=== PATIENT | female | born 2000 ===

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

== ENCOUNTER → 2018-02-03 16:05 | Outpatient (CLI) | payer OTHER, MEDICAID, SELFPAY ==
--- NOTE | 2018-02-03 | DI.US.S_ITS ---
PROCEDURE: US PELVIC COMPLETE INDICATIONS: IUD PLACEMENT TECHNIQUE: Real-time scanning was performed of the pelvic organs, with image documentation. Additional endovaginal scanning was necessary due to incomplete visualization of the adnexal and endometrial structures by transabdominal scanning. COMPARISON: [facility], US, US PELVIC + TRANSVAG + DOPPLER LIMITED, 08/19/2017, 10:57. FINDINGS: Transabdominal scanning: Limited scanning through the kidneys shows no hydronephrosis. No pathologic free abdominal or pelvic fluid. Endovaginal scanning: Uterus: Uterus is normal in size at 9.0 x 3.4 x 4.5 cm. The endometrium measures 7.0 mm in combined thickness. Intrauterine device in expected position. Ovaries: Regressing physiologic cyst involves the left ovary measuring 1.9 x 1.5 x 1.6 cm and the ovaries otherwise are normal. IMPRESSION: 1. Intrauterine device in expected position. Dictated by: Michael JOHNSTON Interpreted: Willy Naranjo MD on 02/03/2018 at 16:43 Approved by: Willy Naranjo M.D. on 02/03/2018 at 17:20
== END ==
PROVIDERS: PCP Family Medicine; Visit Provider Nurse Practitioner Family
DX: Z30.431 Encounter for routine checking of intrauterine contraceptive device (principal)
CPT/HCPCS: 76830; 76856

== ENCOUNTER → 2018-10-22 15:09 | Outpatient (CLI) | payer OTHER, MEDICAID, SELFPAY ==
--- NOTE | 2018-10-22 | DI.US.S_ITS ---
PROCEDURE: US OB <= 14 WEEKS FETUS INDICATIONS: SIZE AND DATES OUTSIDE/PRIOR DATING DATA: Last menstrual period (LMP): 09/13/18. LMP-based estimated date of delivery (CARIN): 06/20/19. First dating scan (date and location): This study. Estimated date of delivery (CARIN) from first dating scan: 06/22/19. TECHNIQUE: Real-time scanning was performed of the fetus and maternal pelvic organs, with image documentation. Endovaginal scanning was also performed to better visualize the fetus and maternal ovaries. COMPARISON: None. FINDINGS: Embryo: What likely is a very early gestation within the gestational sac is found but the certainty of gestation is somewhat limited and the structure does not show cardiac activity (as would be expected at this very early stage of ). Therefore mean sac diameter is utilized for dating, and a mean sac diameter is 6 mm which correlates with a gestational age of 5 weeks 2 days. What appears to be a yolk sac within the gestational sac is seen. Measurement variability in dating: +/- 4 weeks by LMP, +/- 7 days by mean sac diameter (use before 6 weeks gestation if crown-rump length not able to be measured), +/- 5 days by crown-rump length (up to 8 weeks 6 days gestation), +/- 7 days by crown-rump length (up to 13 weeks 6 days gestation). Maternal organs: Ovaries normal considering gestational status. Limited images through the kidneys demonstrate no hydronephrosis. IMPRESSION: There is an intrauterine gestational sac which contains what appears to be a very small yolk sac, and likely a pole but the estimated current gestational age would be 5 weeks 2 days before the expected onset of cardiac activity. Therefore, mean sac diameter is utilized for dating purposes, establishing current estimated gestational age of 5 weeks 2 days, plus or -7 days. Followup OB ultrasound in 10 days could be utilized to confirm viable gestation and more accurately assess the first trimester gestational age for followup. Assuming viable gestation a followup anatomic survey at approximately 21 weeks gestation is recommended. By appearance viability likely is present but cannot yet be established given the very early gestational age before cardiac activity is expected to be seen. Dictated by: Cj Yanez M.D. on 10/22/2018 at 16:51 Approved by: Cj Yanez M.D. on 10/22/2018 at 16:57
== END ==
PROVIDERS: PCP Family Medicine; Visit Provider Family Medicine
DX: Z34.91 Encounter for supervision of normal pregnancy, unspecified, first trimester (principal); Z3A.01 Less than 8 weeks gestation of pregnancy
CPT/HCPCS: 76801; 76830

== ENCOUNTER → 2018-11-02 15:39 | Outpatient (CLI) | payer OTHER, MEDICAID, SELFPAY ==
--- NOTE | 2018-11-02 | DI.US.S_ITS ---
PROCEDURE: US OB <= 14 WEEKS FETUS INDICATIONS: INITIAL SIZING AND DATING OUTSIDE/PRIOR DATING DATA: Last menstrual period (LMP): 09/13/18. LMP-based estimated date of delivery (CARIN): 06/20/19. First dating scan (date and location): 11/02/17. Estimated date of delivery (CARIN) from first dating scan: 06/24/19. TECHNIQUE: Real-time scanning was performed of the fetus and maternal pelvic organs, with image documentation. Endovaginal scanning was also performed to better visualize the fetus and maternal ovaries. COMPARISON: None. FINDINGS: Embryo: [place]-rump length measures 7 mm corresponding to 6 weeks 4 days. Heart rate measures 135 beats per minute. Several small tylor-gestational sac bleed site, largest measuring 1.2 x 1.0 x 0.7 cm Measurement variability in dating: +/- 4 weeks by LMP, +/- 7 days by mean sac diameter (use before 6 weeks gestation if crown-rump length not able to be measured), +/- 5 days by crown-rump length (up to 8 weeks 6 days gestation), +/- 7 days by crown-rump length (up to 13 weeks 6 days gestation). Maternal organs: Ovaries within normal limits with left corpus luteal cyst. Limited images through the kidneys demonstrate no hydronephrosis. IMPRESSION: 6 week 4 day single living IUP. Several small perigestational sac bleed sites. Dictated by: Michael DIEZ Interpreted: Miko Davidson MD on 11/02/2018 at 17:12 Approved by: Nicole Camarillo M.D. on 11/02/2018 at 17:53
== END ==
PROVIDERS: PCP Family Medicine; Visit Provider Family Medicine
DX: Z34.91 Encounter for supervision of normal pregnancy, unspecified, first trimester (principal); Z3A.01 Less than 8 weeks gestation of pregnancy
CPT/HCPCS: 76801

== ENCOUNTER → 2019-01-31 12:24 | Outpatient (CLI) | payer OTHER, MEDICAID, SELFPAY ==
--- NOTE | 2019-01-31 | DI.US.S_ITS ---
PROCEDURE: US OB >= 14 WEEKS FETUS INDICATIONS: ANATOMY OUTSIDE/PRIOR DATING DATA: Last menstrual period (LMP): 09/13/2018. LMP-based estimated date of delivery (CARIN): 06/20/2019. First dating scan (date and location): 11/02/2017. Estimated date of delivery (CARIN) from first dating scan: 06/24/2019. TECHNIQUE: Real-time scanning was performed of the fetus, with image documentation and biometric measurements. COMPARISON: Pelvic ultrasound 11/02/2018. FINDINGS: General: A single living intrauterine gestation is present. Presentation: Breech. Placenta: Placental position is posterior, without previa. Amniotic fluid index: 15.5 cm, normal range is 5-24 cm. heart rate: 163 beats per minute. Maternal cervical canal: 4.2 cm long. Normal lower limit is 2.5 cm. biometrics: Biparietal diameter: 4.6 cm. 19 weeks 6 days Head circumference: 17.9 cm. 20 weeks 2 days Abdominal circumference: 15.7 cm. 20 weeks 6 days Femur length: 3.2 cm. 19 weeks 6 days Estimated gestational age from initial scan: 19 weeks 3 days Composite gestational age from present scan: 20 weeks 2 days Estimated weight and percentile: 346 g. 91st percentile Measurement variability for biometric dating: +/- 7 days from 14 weeks to 15 weeks 6 days gestation, +/- 10 days from 16 weeks to 21 weeks 6 days gestation, +/- 2 weeks from 22 weeks to 27 weeks 6 days gestation, +/- 3 weeks for 28 weeks gestation or later. weight reference: 4500 g or EFW >90/95% is considered macrosomia or large for gestational age. EFW <10% is small for gestational age. EFW 5% or less is considered intra-uterine growth restriction. Anatomic survey: Neuro: Ventricles are non-dilated at less than 10 mm. Cisterna magna is normal at 3-11 mm. Cerebellum is normal in size and morphology. Nuchal skin fold: Normal at less than 6 mm between 14-21 weeks gestational age. Face: Nose and lips, facial profile are normal. Spine: No evidence for spina bifida. Heart: 4-chambered heart is present, with normal ventricular outflow tracts. Diaphragm: Diaphragm is intact. Stomach: Left-sided stomach is present. Kidneys: Prominent renal pelvis measuring 3 mm on the left and 4 mm of the right. Normal is less than 5 mm in 2nd trimester, less than 7 mm in 3rd trimester. Cord: Cord insertion is not well-seen due to position. 3-vessel cord is present. Bladder: Normal in size. Extremities: All 4 extremities identified. Other: Right maternal kidney hydronephrosis, previously normal on 11/02/2018. No hydronephrosis on the left. IMPRESSION: 1. Looney living intrauterine at 20 weeks 2/7 days based on today's ultrasound. This is concordant with the initial assessment. Estimated weight is in the 91st percentile. 2. Normal placenta and amniotic fluid. 3. The cord insertion is not well-seen due to position. The renal pelvis bilaterally is mildly prominent. Otherwise normal anatomic survey. Recommend followup ultrasound. 4. Maternal right-sided hydronephrosis which is new compared to October 2018. The etiology of the hydronephrosis is uncertain. Comment: Findings were discussed with Areli torres of Dr. Imelda Tang at the time of dictation. Dictated by: Miko Davidson M.D. on 01/31/2019 at 16:33 Approved by: Miko Davidson M.D. on 01/31/2019 at 16:48
== END ==
PROVIDERS: PCP Family Medicine; Visit Provider Family Medicine
DX: Z36.89 Encounter for other specified antenatal screening (principal); O99.89 Other specified diseases and conditions complicating pregnancy, childbirth and the puerperium; N13.30 Unspecified hydronephrosis; Z3A.20 20 weeks gestation of pregnancy
CPT/HCPCS: 76811

== ENCOUNTER → 2019-02-25 11:40 | Outpatient (CLI) | payer OTHER, MEDICAID, SELFPAY ==
--- NOTE | 2019-02-25 | DI.US.S_ITS ---
PROCEDURE: US OB FOLLOW UP INDICATIONS: RE-EVALUATE MATERNAL KIDNEYS, KIDNEYS, PLACENTAL CI OUTSIDE/PRIOR DATING DATA: Last menstrual period (LMP): 09/13/2018. LMP-based estimated date of delivery (CARIN): 06/20/2019. First dating scan (date and location): 11/02/2017. Estimated date of delivery (CARIN) from first dating scan: 06/24/2019. TECHNIQUE: Real-time scanning was performed of the fetus, with image documentation and biometric measurements. Endovaginal scanning: No COMPARISON: [facility], , OB >= 14 WEEKS FETUS, 01/31/2019, 12:39. FINDINGS: General: A single living intrauterine gestation is present. Presentation: Vertex. Placenta: Placental position is fundal, without previa. Amniotic fluid index: 22.0 cm, normal range is 5-24 cm. heart rate: 145 beats per minute. Maternal cervical canal: 4.0 cm long. Normal lower limit is 2.5 cm. Prominence of the renal pelves bilaterally redemonstrated each measuring up to roughly 6 mm. Other: Maternal right hydronephrosis has resolved and normal appearance of the left kidney. IMPRESSION: 1. Single living IUP redemonstrated. 2. Bilateral renal pelviectasis persists. Continued sonographic surveillance recommended. 3. Resolved right maternal hydronephrosis. Dictated by: Michael DIEZ Interpreted: Miko Davidson MD on 02/25/2019 at 13:15 Approved by: Miko Davidson M.D. on 02/25/2019 at 15:33
== END ==
PROVIDERS: PCP Family Medicine; Visit Provider Family Medicine
DX: Z36.2 Encounter for other antenatal screening follow-up (principal); Z3A.23 23 weeks gestation of pregnancy
CPT/HCPCS: 76816

== ENCOUNTER → 2019-04-13 10:05 | Outpatient (CLI) | payer OTHER, MEDICAID, SELFPAY ==
--- NOTE | 2019-04-13 | DI.US.S_ITS ---
PROCEDURE: US OB FOLLOW UP INDICATIONS: PELVIECTASIS OUTSIDE/PRIOR DATING DATA: Last menstrual period (LMP): 09/13/2018. LMP-based estimated date of delivery (CARIN): 06/20/2019. First dating scan (date and location): 11/02/2017. Estimated date of delivery (CARIN) from first dating scan: 06/24/2019. TECHNIQUE: Real-time scanning was performed of the fetus, with image documentation and biometric measurements. COMPARISON: [facility], , OB FOLLOW UP, 02/25/2019, 12:15. FINDINGS: General: A single living intrauterine gestation is present. Presentation: Vertex. Placenta: Placental position is posterior, without previa. Amniotic fluid index: 12.3 cm, normal range is 5-24 cm. heart rate: 144 beats per minute. Maternal cervical canal: Not well-seen. Estimated gestational age from initial scan: 29 weeks 5 days Persistent mild right renal pyelectasis with the renal pelvis measuring up to 7.6 mm. Left renal pelvis is normal measuring 2.4 mm. Normal appearance of the maternal kidneys. IMPRESSION: Single living IUP redemonstrated and there is persistent mild right renal pyelectasis. Continued sonographic surveillance recommended. Dictated by: Michael DIEZ Interpreted: Cj Yanez MD on 04/13/2019 at 12:39 Approved by: Cj Yanez M.D. on 04/13/2019 at 20:34
== END ==
PROVIDERS: PCP Family Medicine; Visit Provider Family Medicine
DX: O28.3 Abnormal ultrasonic finding on antenatal screening of mother (principal); Z3A.29 29 weeks gestation of pregnancy
CPT/HCPCS: 76816

== ENCOUNTER → 2019-05-27 11:59 | Outpatient (ROUT) | payer OTHER, SELFPAY | PROVIDERS: Visit Provider Family Medicine | DX: Z34.03 Encounter for supervision of normal first pregnancy, third trimester (principal) | CPT/HCPCS: 87081 ==

== ENCOUNTER → 2019-06-01 12:56 | Outpatient (CLI) | payer BC, SELFPAY ==
--- NOTE | 2019-06-01 | DI.US.S_ITS ---
PROCEDURE: US OB LIMITED INDICATIONS: FOLLOW UP KIDNEYS OUTSIDE/PRIOR DATING DATA: Last menstrual period (LMP): 09/13/2018. LMP-based estimated date of delivery (CARIN): 06/20/2019. First dating scan (date and location): 11/02/2017. Estimated date of delivery (CARIN) from first dating scan: 06/24/2019 . TECHNIQUE: Real-time scanning was performed of the fetus, with image documentation. Endovaginal scanning: No COMPARISON: [facility], OB FOLLOW UP, 04/13/2019, 10:21. [facility], [employer], 07/23/2016, 13:51. FINDINGS: A single living intrauterine gestation is present. Presentation: Vertex. Placenta: Placental position is posterior fundal, without previa. Amniotic fluid index: Not measured. heart rate: 140 beats per minute. Maternal cervical canal: Not well-seen. Estimated gestational age from initial scan: 36 weeks 5 days. Atelectasis involving the right kidney redemonstrated with the pelvis no measuring 11.4 mm. Normal appearance of the left kidney. IMPRESSION: 1. Single living IUP redemonstrated in persistent right renal pyelectasis with the renal pelvis measuring up to 11.4 mm. Continued followup recommended and renal ultrasound. Dictated by: Michael DIEZ Interpreted: Vipin Tian MD on 06/01/2019 at 14:34 Approved by: Vipin Tian M.D. on 06/01/2019 at 17:06
== END ==
PROVIDERS: PCP Family Medicine; Referring Provider Family Medicine; Visit Provider Family Medicine
DX: Z36.2 Encounter for other antenatal screening follow-up (principal); O99.89 Other specified diseases and conditions complicating pregnancy, childbirth and the puerperium; N13.30 Unspecified hydronephrosis; Z3A.36 36 weeks gestation of pregnancy
CPT/HCPCS: 76815

== ENCOUNTER 2019-06-17 07:01 | Inpatient (IN) | payer BC, SELFPAY ==
[2019-06-17] MEDS: miSOPROStoL 25 MCG TABLET VAG ×2 (08:17→12:32)
[2019-06-17 08:51] LABS: Add Manual Diff / Slide Review NO; Basophils Absolute Auto 100 /uL (0-100); Basophils Percent Auto 0.5 % (0-2); Eosinophils Absolute Auto 100 /uL (0-450); Eosinophils Percent Auto 0.6 % (2-4); Hematocrit 30.6 % (36-46); Lymphocytes Absolute Auto 2500 /uL (1100-4500); Lymphocytes Percent Auto 20.7 % (25-40); Mean Corpuscular HGB Conc 32.8 % (30-36); Mean Corpuscular Hemoglobin 23.2 PG (26-34); Mean Corpuscular Volume 70.6 fL (80-100); Monocytes Absolute Auto 800 /uL (0-900); Monocytes Percent Auto 6.9 % (3-14); Neutrophils Absolute Auto 8700 /uL (1500-7000); Neutrophils Percent Auto 71.3 % (50-75); Platelet Count 297 X10^3/uL (150-400); Red Blood Cell Count 4.33 X10^6/uL (4.0-5.2); Red Cell Distribution Width 19.1 % (11.6-14.8); White Blood Cell Count 12.2 X10^3/uL (4.5-11.0)
[2019-06-17 12:53] VITALS: BP 118/80
--- NOTE | 2019-06-17 17:53 | PM.OBPNLAB ---
Date/Time Date Patient Seen: 06/17/19 Time Patient Seen: 17:00 Pain Control Pain control: tolerating well Pelvic Exam Dilation (cm): 2 Effacement (%): 60 station: -2 Amniotic membrane status: Intact Comments: Bulging with contractions Contractions Contractions on admission: irregular Monitor mode: External Contraction frequency (min): 2 Contraction duration (min): 1 Contraction pattern: Irregular Contraction phase: Resting Contraction intensity: Moderate Status status: Category l Heart Rate Baseline: 120 Monitor Accelerations: Present Monitor Decelerations: Absent Assessment and Plan Assessment: induction ongoing Plan: continuous present management Comments: 19-year-old at term with induction of labor due to elective reasons due to previous precipitous delivery and patient living approximately 2 hours away. Also childcare for delivery will be absent starting on Thursday. Patient was brought in this morning and received 2 doses of Cytotec. She is having more regular contractions and is uncomfortable with the contractions. She has intact bag of water. Baby is active. She is having pain in her back with contractions. She had an unremarkable although there is presence of pelviectasis and plan is for ultrasound. She is GBS negative Status post Tdap Rh positive She does not want epidural Evaluation with ultrasound shows baby is LOP 2 L OT position. Cervix is still posterior. We will do position changes will augment with Pitocin if contractions subside or not an adequate contraction pattern and attempt rupture membranes if baby comes down and baby is well applied to cervix.
[2019-06-17] MEDS: OXYTOCIN 10 UNIT/ML VIAL IM (22:50)
--- NOTE | 2019-06-17 23:16 | PM.OBPRVD ---
Labor & Delivery Delivery date: 06/17/19 Intrapartal events: None Cervical ripening method: per misoprostal protocol Induction method: none Delivery monitor: external FHT and external uterine Route of delivery: L&D Laceration Description: Periurethral - 1st Degree Estimated blood loss (mL): 300 Anesthesia type: None Complications: none Narrative: Identifying data: 19-year-old at 39 weeks estimated gestational based on the EDC of 06/24/2019 based on a 6 week ultrasound an LMP due date of 06/20/2019. Patient had unremarkable . Baby was found have pelviectasis and was monitored throughout the with normal growth and fluid and plan is for post kameron an ultrasound. Mom was brought to labor and delivery for cervical ripening on the morning of delivery. She was given Cytotec at approximately 8:00 a.m. and then again at noon. She had cervical change and progressed into active labor was felt to be active at about 1700. Stage I lasted 5 hours and 22 minutes Patient was brought to labor and delivery and receive Cytotec at 8:00 a.m. and 12:00 p.m. on the day of delivery. She was found to have dilation to 2 cm with 60% effaced at approximately 5:00 p.m.. She was having painful contractions and cramping. She continued to progress to labor and was very mobile and use nipple stimulation and had spontaneous rupture membranes at 9:11 p.m.. The fluid was clear and it was about an hour and half prior to delivery. She had external tocometer and heart monitor. External tocometer showed uterine contractions every 2-3 minutes. There were palpating as moderate. heart monitor baseline 120s to 130s with accelerations and no decelerations and moderate variability. Towards the end of stage I patient was involuntarily pushing when she was approximately 6 7 cm dilated. The cervix was now stretchy and anterior and the head was at -1 station. She had some swelling of the anterior cervix. We coached ir through pushing impulse and tried many different positions. Earlier in stage I prior to rupture membranes baby was found to be occiput posterior left or left occiput transverse. Patient use the Pean it and was on the ball and hands and knees multiple different positions. After a period of time of this her back labor went away. Patient started pushing probably about 20-22 but was not yet complete. Her cervix continued to dilate. Stage II lasted approximately 20 minutes. Patient was involuntary pushing at about 6-7 cm but cervix managed to continually and quickly dilate despite this with some anterior swelling. Baby was now at +1 station and I was able to lift the anterior part of the cervix over the head and then baby was at station heart rate then decreased to approximately 80s and 90s with good variability and patient was encouraged to push and she quickly pushed and the head was . Baby was in FREDY position. The anterior and posterior shoulders were easily delivered some difficulty with the body and the baby was placed on mom's chest and was vigorous. Apgars were 9 at 1 minute and 9 at 5 minutes. Stage III lasted 4 minutes Resulted in the normal spontaneous vaginal delivery of an intact minimally calcified placenta with a central cord insertion with a three-vessel cord that was quite large. There was a very small right labial superficial laceration that was not bleeding and was closely reapproximated so it was not repaired. There were no other lacerations. The cervix was visualized with some difficulty and showed no evidence of laceration. Tendon use of Pitocin was given IM and later was firm. Estimated blood loss was 300 cc At the time of this dictation both mom and baby are in stable condition Plan for aftercare: routine
--- NOTE | 2019-06-17 23:42 | PM.OBHP.1 ---
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 She had a Devlin score for 5 at the time presentation. She had a weight gain of 35 lb. Blood pressure is 110 to 128/50 8-74. She had a total of 12 visits. Sequential screen was negative glucose tolerance test 90. LMP EDC 06/20/2019 and 6 week ultrasound 06/24/2019 Patient has a history of chronic anemia and is thalassemia trait Indications Indication for induction OB: maternal distance, history of rapid labor and other History of Present care: good care Dating criteria: LMP confirmed by 1st trimester US Ultrasounds: normal 1st trimester US, normal mid trimester US, abnormal US findings and other Abnormal ultrasound findings: pelviectasis, mild, monitor throughout Obstetrical complications: none Medical complications: none Preadmission Labs Blood type: O (+) positive -: Antibody screen: negative, Cystic fibrosis screen: negative, GBS status: negative, HBsAG: negative, HIV: negative, HSV 1: negative, HSV 2: negative and RPR/VDLR: negative -: Chlamydia screen: not detected and Gonorrhea screen: not detected -: Rubella: immune and Varicella: immune HCAB: negative PAP: Normal Sequential screen: Negative 1 hr GTT: 90 Prior (ies) History: 11/03/2013 at 40 weeks 3 7 estimated gestational age normal spontaneous vaginal delivery after 11 hours of labor with epidural [facility] headed male viable 8 lb 1 oz named Galindo 08/29/2016 at 39 weeks estimated gestational age normal spontaneous vaginal delivery after 24 hour labor with no epidural at [facility] viable female weighing 7 lb 3 oz Evaluation Evaluation Laboratory results: Laboratory Tests 06/17/19 06/17/19 08:30 08:30 WBC 12.2 H RBC 4.33 Hgb 10.0 L Hct 30.6 L MCV 70.6 L MCH 23.2 L MCHC 32.8 RDW 19.1 H Plt Count 297 Neut % (Auto) 71.3 Lymph % (Auto) 20.7 L Whitley % (Auto) 6.9 Eos % (Auto) 0.6 L Baso % (Auto) 0.5 Neut # (Auto) 8700 H Lymph # (Auto) 2500 Whitley # (Auto) 800 Eos # (Auto) 100 Baso # (Auto) 100 Blood Type O Positive Antibody Screen [facility] Social History Smoking Status: Never smoker Comment: Past medical history thalassemia trait Medications vitamins Allergies sulfa Past surgical history unremarkable Health related behavior: Does not smoke or use alcohol or illicit drugs Family history positive for anxiety and depression Meds Home Medications and Allergies Allergies Allergy/AdvReac Type Severity Reaction Status Date / Time Sulfa (Sulfonamide Allergy Unknown Verified 06/17/19 13:07 Antibiotics) [SULFA (SULFONAMIDE ANTIBIOTICS)] Review of Systems Review of Systems ROS: Yes All systems reviewed with the patient and are negative except as otherwise documented Exam Vital Signs (past 8 hours): Alert and oriented x3 Vital signs stable HEENT unremarkable Neck is supple without masses Chest: Clear to auscultation without wheezes rhonchi or crackles Cor: Regular rate and rhythm without murmur Abdomen: Positive bowel sounds, soft, nontender, nondistended, gravid, estimated weight 7 have 8 lb Extremities: No edema, DTRs are intact Cervical exam long posterior fingertips heart tracings 130s to 140s with moderate variability with accelerations and no decelerations Objective Labs Result Diagrams: 06/17/19 08:30 Labs: Laboratory Results - last 24 hr 06/17/19 06/17/19 08:30 08:30 WBC 12.2 H RBC 4.33 Hgb 10.0 L Hct 30.6 L MCV 70.6 L MCH 23.2 L MCHC 32.8 RDW 19.1 H Plt Count 297 Neut % (Auto) 71.3 Lymph % (Auto) 20.7 L Whitley % (Auto) 6.9 Eos % (Auto) 0.6 L Baso % (Auto) 0.5 Neut # (Auto) 8700 H Lymph # (Auto) 2500 Whitley # (Auto) 800 Eos # (Auto) 100 Baso # (Auto) 100 Blood Type O Positive Antibody Screen Negative Assessment and Plan Assessment and Plan Assessment and Plan narrative: 19-year-old at 39 weeks gestation here for cervical ripening will augment as necessary GBS negative Status post Tdap O-positive, rubella immune, antibody screen negative Glucose tolerance test 90 Sequential screen negative Unremarkable Routine management Does not want epidural
[2019-06-18] MEDS: IBUPROFEN 600 MG TABLET PO ×2 (01:05→09:49)
[2019-06-18] MEDS: PRENATAL VIT,CALC/IRON/FOLIC 1 TABLET 1 TAB PO (09:49)
[2019-06-18] MEDS: DOCUSATE 100 MG CAPSULE PO (09:49)
--- NOTE | 2019-06-18 12:22 | PM.OBDS.1 ---
Discharge Providers Provider Date of admission: 06/17/19 07:01 Discharge Date: 06/18/19 Primary care physician: Imelda Tang MD Consults: 06/18/19 23:12 Consult to Nozzle Worker Routine Comment: Discharge provider: Imelda Tang MD Summary Hospital Course Date Patient Seen: 06/18/19 Time Patient Seen: 12:23 Hospital Course: Patient admitted for Cytotec cervical ripening which initiated labor. Patient had spontaneous rupture membranes an hour and half prior to delivery which were clear. Patient did not have epidural. She does not have Pitocin. She had a normal spontaneous vaginal delivery. She had uncomplicated course. Her bleeding is less. She is not having significant clots. Her pain is controlled with ibuprofen. She is breast-feeding well. She will be discharged home in stable condition Follow-up with me in 2 weeks Routine instructions regarding feeding, bleeding, infection were given. Discharge medications Continue vitamins MiraLax as needed for constipation Ice to perineum Motrin as needed at home Peripartum Data Delivery Method: Natural Vaginal Laceration description: Superficial complications: none Status at Discharge Cognitive/behavioral status at discharge: oriented Functional status at discharge: independent ambulation Overall status at discharge: patient is progressing back to baseline Time Spent with Patient Time attestation: Total time spent providing and/or coordinating discharge services: 30 minutes Objective Labs Result Diagrams: 06/17/19 08:30 Exam Narrative Exam Narrative: Alert and oriented x3 Neck is supple Lungs clear to auscultation Cor regular rate and rhythm Uterus firm below the umbilicus and nontender Extremities no edema, 2+ patellar reflexes Discharge Plan Discharge Plan Patient Disposition: Home Discharge orders & Medications Follow up/Referrals: Imelda Tang MD [Primary Care Provider] - Diet/Activity/Treatments Diet: Diet as Tolerated Activity: Routine pelvic rest Discharge Data Primary Care Provider: Imelda Tang
[2019-06-18 14:58] VITALS: BP 111/73; PULSE 87; RESP 16; TEMP 36.6
== END 2019-06-18 15:57 | disposition home or self-care (01) | DRG 807 ==
PROVIDERS: Admitting Provider Family Medicine; PCP Family Medicine; Referring Provider Family Medicine; Visit Provider Family Medicine
DX: O80 Encounter for full-term uncomplicated delivery (principal); Z37.0 Single live birth; Z3A.39 39 weeks gestation of pregnancy
CPT/HCPCS: 59050; 59200; 85025; 86850; 86900; 86901; G0379; J2590

== ENCOUNTER → 2021-03-26 08:19 | Outpatient (CLI) | payer OTHER, SELFPAY ==
--- NOTE | 2021-03-26 | DI.US.S_ITS ---
PROCEDURE: US PELVIC COMPLETE INDICATIONS: PAIN TECHNIQUE: Real-time scanning was performed of the pelvic organs, with image documentation. Additional endovaginal scanning was necessary due to incomplete visualization of the adnexal and endometrial structures by transabdominal scanning. COMPARISON: [facility], OB LIMITED, 06/01/2019, 13:20. [facility], PELVIC COMPLETE, 02/03/2018, 16:19. FINDINGS: Uterus: Uterus is anteverted and normal in size at 9.0 x 4.3 x 5.7 cm. The myometrium is homogeneous. The endometrium measures 1.0 mm combined thickness. Ovaries: The right ovary measures 2.7 x 2.4 x 1.9 cm. The left ovary measures 3.0 x 2.7 x 3.7 cm. The ovaries have a normal sonographic appearance. There is a 1.9 cm simple cyst in the left ovary. Other: No pathologic free abdominal or pelvic fluid. IMPRESSION: 1. Normal pelvic ultrasound exam. 2. A cause for pelvic pain is not identified. 3. A 1.9 cm simple cyst in the left ovary, most likely a dominant ovarian follicle. We strive to produce accurate, complete, and clear reports of imaging services. To assist us in improving patient care, this report was composed using standard report templates and voice recognition software. Therefore, it may contain abnormal punctuation, insertions and/or omissions. Occasional wrong-word or sound-alike substitutions may occur. Though we review the report and make efforts to correct it, we do recommend that the report be read carefully in proper context to recognize any text inaccuracies. Dictated by: Ty Clarke M.D. on 03/26/2021 at 16:56 Approved by: Ty Clarke M.D. on 03/26/2021 at 16:59
== END ==
PROVIDERS: PCP Family Medicine; Referring Provider Family Medicine; Visit Provider Family Medicine
DX: R10.2 Pelvic and perineal pain (principal); N83.292 Other ovarian cyst, left side
CPT/HCPCS: 76830; 76856